=== PATIENT | male | born 1980 | race Caucasian/White ===

== ENCOUNTER 2019-04-04 19:14 | Emergency (ER) | payer OTHER | END 2019-04-04 23:10 | disposition home or self-care (01) | LOC: JER 19:14 ==

== ENCOUNTER 2022-04-29 19:55 | Emergency (ER) | payer OTHER ==
[2022-04-29 20:02] VITALS: BP 142/91; PULSE 78; TEMP 97; BMI 28.7
== END 2022-04-29 21:30 | disposition home or self-care (01) ==
LOC: JERFT 19:55 → JER 19:55 → JERFT 21:30
DX: M79.661 Pain in right lower leg (principal)
CPT/HCPCS: 73590-TC-RT-FY; 99283-25

== ENCOUNTER 2023-01-18 14:09 | Emergency (ER) | payer OTHER ==
[2023-01-18 14:33] VITALS: BP 128/89; PULSE 74; RESP 16; TEMP 98.1; BMI 31.3
[2023-01-18] MEDS ORDERED: KETOROLAC TROMETHAMINE 30 MG/1 ML VIAL IM ONE (15:07)
[2023-01-18] MEDS ORDERED: ACETAMINOPHEN 500 MG TABLET (FP) PO ONE (15:07)
[2023-01-18] MEDS ORDERED: KETOROLAC TROMETHAMINE 30 MG/1 ML VIAL ONE (15:12)
[2023-01-18] MEDS ORDERED: ACETAMINOPHEN 500 MG TABLET (FP) ONE (15:12)
== END 2023-01-18 16:05 | disposition home or self-care (01) ==
LOC: JERFT 14:09
PROC: 3E0233Z Introduction of Anti-inflammatory into Muscle, Percutaneous Approach (ICD-10-PCS; principal; 2023-01-18)
DX: M25.531 Pain in right wrist (principal)
CPT/HCPCS: 73110-TC-RT-FY; 99284-25